=== PATIENT | male | born 1935 | race Caucasian/White ===

== ENCOUNTER 2016-12-31 22:43 | Inpatient (IN) ==
[2016-12-31 23:37] LABS: Basophils % 0.4 %; Eosinophils # 0.1 K/mcL (0.0-0.6); Eosinophils % 2.6 %; Hematocrit 36.4 % (37.5-50.1); Hemoglobin 12.2 g/dL (12.9-16.9); Immature Granulocytes % 1.1 % (0-4); Lymphocytes # 1.5 K/mcL (0.6-4.6); Mean Corpuscular HGB Conc 33.5 g/dL (31.6-35.5); Mean Corpuscular Hemoglobin 29.5 pg (28.0-33.3); Mean Corpuscular Volume 87.9 fL (83.0-100.0); Mean Platelet Volume 9.5 fL (9.4-12.4); Monocytes # 0.6 K/mcL (0.0-1.3); Monocytes % 11.2 %; Platelet Count 181 K/mcL (140-400); Red Blood Count 4.14 M/mcL (4.19-5.50); Red Cell Distribution Width 13.4 % (11.5-14.5); Segmented Neutrophils % 56.7 %
[2016-12-31 23:44] LABS: INR 1.2; Prothrombin Time 12.5 Seconds (9.4-12.1)
[2016-12-31 23:47] LABS: Activated Partial Thrombo Time 35.4 Seconds (26.0-36.0)
[2016-12-31 23:49] LABS: BUN/Creatinine Ratio 17 (6-26); Blood Urea Nitrogen 19 mg/dL (8-26); Calcium 9.7 mg/dL (8.6-10.8); Carbon Dioxide 27 mEq/L (19-29); Chloride 104 mEq/L (98-109); Glucose 145 mg/dL (70-99); Osmolality,Calculated 295 (280-300); Potassium 3.8 mEq/L (3.5-4.5); Sodium 140 mEq/L (136-145); eGFR For African Americans > 60 (> 60); eGFR For Non-African Americans > 60 (> 60)
--- NOTE | 2017-01-01 00:27 | Emergency Department Note ---
Disposition Clinical Impression: Lower gastrointestinal hemorrhage Disposition: Home, Self-Care Condition: Good Time of Disposition: 00:27 GI Bleed HPI - General Chief complaint: ED GI Bleed Stated complaint: rectal bleeding Time Seen by Provider: 12/31/16 23:07 Source: patient Mode of arrival: ambulatory Limitations: no limitations Nursing Notes Reviewed: Yes Vital Signs Reviewed: Yes - History of Present Illness HPI Narrative: 81-year-old male with past medical history of diabetes and ischemic bowel presents with abrupt onset lower GI bleed this evening. He states that he was walking around and noticed that his underwear was wet and they were soaked with blood. Since then, he had 4-5 episodes of gross hematochezia without a bowel movement. He denies any recent straining with bowel movements or bleeding hemorrhoids. He denies any abdominal pain, nausea or vomiting, fever, headache or near-syncope, chest pain or shortness of breath. He denies any antiplatelet or anticoagulant use. Last colonoscopy was normal and about 10 years ago. Pt Subjective Complaint: gross hematochezia - Related Data Home Medications Medication Instructions Recorded Confirmed Finasteride [Proscar] 5 mg PO DAILY 11/14/15 12/31/16 Metformin HCl [Fortamet] 1,000 mg PO BID 11/14/15 12/31/16 Tamsulosin HCl [Flomax] 0.4 mg PO DAILY 11/14/15 12/31/16 Previous Rx's Medication Instructions Recorded Docusate Sodium [Colace] 100 mg PO BID #60 capsule 11/17/15 Allergies Allergy/AdvReac Type Severity Reaction Status Date / Time codeine Allergy Hives Verified 12/31/16 23:56 All systems ED: reviewed and negative except as stated. Past Medical History - Past Medical History Attestation: Yes The following information was validated with the patient. Source: patient Medical history: Reports: diabetes, other Surgical history: Reports: appendectomy, other Psychiatric history: Reports: no psych history - Social History Smoking Status: Never smoker Smokeless Tobacco Status: No Alcohol use: Reports: none Drug use: Reports: none Physical Exam - Head Head exam: atraumatic, normocephalic, normal inspection - Eye Eye exam: Present: normal appearance, PERRL, EOMI - ENT ENT exam: normal exam, normal oropharynx, mucous membranes moist - Neck Neck exam: Present: normal inspection, full ROM, trachea midline - Chest Chest inspection: Present: normal inspection, symmetric chest wall rise - Respiratory Respiratory exam: Clear to auscultation bilaterally without wheezes rales or rhonchi Cardiovascular Cardiovascular exam: Present: regular rate, normal rhythm, normal heart sounds - Abdominal Exam Exam is benign. Patient has no tenderness, rigidity, or guarding. Bowel sounds are normal. Rectal exam showed small non-bleeding external hemorrhoids, no fissures. Internal exam showed an enlarged prostate and gross blood. - Extremities Exam Extremities exam: Present: normal inspection, full ROM - Back Exam Back exam: Present: normal inspection, full ROM. Absent: tenderness, CVA tenderness (R), CVA tenderness (L) - Neurological Exam Neurological exam: Present: alert, oriented X3, CN II-XII intact - Psychiatric Psychiatric exam: Present: normal affect, normal mood - Skin Skin exam: Present: warm, dry, intact, normal color - General Limitations: no limitations General appearance: alert, in no apparent distress Course - Reevaluation(s) Reevaluation #1: Hemoglobin 12. Vital stable in the emergency department on reassessment. Patient accepted to hospitalist service by Dr. Gomez for lower GI bleed. Type and screen was sent. Time: 00:36 Vital Signs Temperature 97.6 F 12/31/16 22:46 Pulse Rate 75 12/31/16 22:46 Respiratory Rate 18 12/31/16 22:46 Blood Pressure 151/91 12/31/16 22:46 O2 Sat by Pulse Oximetry 94 12/31/16 22:46 Temperature 97.6 F 12/31/16 22:46 Pulse Rate 68 01/01/17 00:00 Respiratory Rate 14 01/01/17 01:35 Blood Pressure 151/73 01/01/17 01:35 O2 Sat by Pulse Oximetry 95 01/01/17 00:00 Oxygen Delivery Oxygen Delivery Room Air GI Bleed - Lab Data Result diagrams: 12/31/16 23:25 12/31/16 23:25 Lab Results 12/31/16 12/31/16 12/31/16 Range/Units 23:25 23:25 23:25 WBC 5.4 (4.3-11.1) K/mcL RBC 4.14 L (4.19-5.50) M/mcL Hgb 12.2 L (12.9-16.9) g/dL Hct 36.4 L (37.5-50.1) % MCV 87.9 (83.0-100.0) fL MCH 29.5 (28.0-33.3) pg MCHC 33.5 (31.6-35.5) g/dL RDW 13.4 (11.5-14.5) % Plt Count 181 (140-400) K/mcL MPV 9.5 (9.4-12.4) fL Immature Gran % 1.1 (0-4) % Seg Neutrophils % 56.7 % Lymphocytes % 28.0 % Monocytes % 11.2 % Eosinophils % 2.6 % Basophils % 0.4 % Neutrophils # 3.0 (1.6-8.9) K/mcL Lymphocytes # 1.5 (0.6-4.6) K/mcL Monocytes # 0.6 (0.0-1.3) K/mcL Eosinophils # 0.1 (0.0-0.6) K/mcL Basophils # 0.0 (0.0-0.2) K/mcL PT 12.5 H (9.4-12.1) Seconds INR 1.2 APTT 35.4 (26.0-36.0) Seconds Sodium 140 (136-145) mEq/L Potassium 3.8 (3.5-4.5) mEq/L Chloride 104 (98-109) mEq/L Carbon Dioxide 27 (19-29) mEq/L BUN 19 (8-26) mg/dL Creatinine 1.10 (0.72-1.25) mg/dL Est GFR ( Amer) > 60 (> 60) Est GFR (Non-Af Amer) > 60 (> 60) BUN/Creatinine Ratio 17 (6-26) Glucose 145 H (70-99) mg/dL Calculated Osmolality 295 (280-300) Lactic Acid (0.5-2.2) mmol/L Calcium 9.7 (8.6-10.8) mg/dL Blood Type Antibody Screen 12/31/16 12/31/16 Range/Units 23:25 23:46 WBC (4.3-11.1) K/mcL RBC (4.19-5.50) M/mcL Hgb (12.9-16.9) g/dL Hct (37.5-50.1) % MCV (83.0-100.0) fL MCH (28.0-33.3) pg MCHC (31.6-35.5) g/dL RDW (11.5-14.5) % Plt Count (140-400) K/mcL MPV (9.4-12.4) fL Immature Gran % (0-4) % Seg Neutrophils % % Lymphocytes % % Monocytes % % Eosinophils % % Basophils % % Neutrophils # (1.6-8.9) K/mcL Lymphocytes # (0.6-4.6) K/mcL Monocytes # (0.0-1.3) K/mcL Eosinophils # (0.0-0.6) K/mcL Basophils # (0.0-0.2) K/mcL PT (9.4-12.1) Seconds INR APTT (26.0-36.0) Seconds Sodium (136-145) mEq/L Potassium (3.5-4.5) mEq/L Chloride (98-109) mEq/L Carbon Dioxide (19-29) mEq/L BUN (8-26) mg/dL Creatinine (0.72-1.25) mg/dL Est GFR ( Amer) (> 60) Est GFR (Non-Af Amer) (> 60) BUN/Creatinine Ratio (6-26) Glucose (70-99) mg/dL Calculated Osmolality (280-300) Lactic Acid 1.1 (0.5-2.2) mmol/L Calcium (8.6-10.8) mg/dL Blood Type O POSITIVE Antibody Screen NEGATIVE Attestation Statement - Attestation Attestation: I, Sánchez Cronin, examined this patient and my medical decision-making was reviewed with the YARD CALLER/PA/Advanced Practice Nurse/Resident Physician. I agree with the documented findings, disposition and treatment plan as described except to the extent set forth below. 81-year-old male presents with concerns of hematochezia. Patient states she has had greater than 5 episodes of bright red blood per rectum which filled the toilet full. Patient denies fever, chills, nausea, vomiting, near syncopal symptoms, palpitations, chest pain, shortness of breath. She states she had one episode of hematachezia 2 weeks ago. Had a colonoscopy about 10 years ago which was within normal limits. Vital signs are within normal limits. Rectal exam revealed bright red blood without evidence of melena. Hemoglobin is within normal limits. Patient will be admitted to the hospital for further evaluation and likely colonoscopy for care of GI bleeding.
[2017-01-01] MEDS ORDERED: Naloxone 0.4 MG/ML INJ IVP PRN (01:14)
[2017-01-01] MEDS ORDERED: Ondansetron 4 MG/2 ML VIAL IVP PRN (01:14)
[2017-01-01] MEDS ORDERED: 0.9 % Sodium Chloride 1,000 ML IVC SCH (01:15)
--- NOTE | 2017-01-01 01:26 | Internal Med History&Physical ---
Date of Encounter: 01/01/17 Time of Encounter: 01:45 Assessment and Plan (1) Lower gastrointestinal hemorrhage Current visit: Yes Status: Acute Acute lower GI bleed - bright red blood per rectum - gross hematochezia Unclear etiology - possible diverticulosis or bleeding from hemorrhoids Continue IV fluids, nothing by mouth, IV Zofran, IV famotidine Gastroenterology consult Monitor H&H, transfuse PRBC if needed CT abdomen and pelvis - pending Labs in a.m. (2) Type 2 diabetes mellitus Current visit: Yes Status: Chronic Type 2 diabetes mellitus [id number], hyperglycemia Glucose checks, sliding scale insulin Qualifiers: Diabetes mellitus complication status: without complication Diabetes mellitus extermination inspector insulin use: without extermination inspector use Qualified Code(s): E11.9 - Type 2 diabetes mellitus without complications (3) BPH (benign prostatic hyperplasia) Current visit: Yes Status: Chronic Continue home medications Qualifiers: Prostatic enlargement morphology: unspecified morphology Lower urinary tract symptom presence: symptoms present Qualified Code(s): N40.1 - Benign prostatic hyperplasia with lower urinary tract symptoms (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 Benson in November 2015 (5) DVT prophylaxis Current visit: Yes Status: Acute Continue SCDs, anticoagulants contraindicated due to GI bleed Internal Medicine - H&P: HPI Chief complaint: Blood in stool Admitted From: Emergency Dept History of present illness: Mr. Dalton is a 81 year old male with past medical history of diabetes, BPH and history of ischemic bowel status post cecopexy and small bowel resection with anastomosis. Patient presents to the ED with complaints of bright red blood in stool. Patient states he got out of his chair to go the bathroom, this afternoon, and felt that his underwear soaked. When he checked he found there was a lot of blood in his underwear. He continued to have almost 5 episodes of bright red blood per rectum. He states he did not see any stool, and it was only blood. Patient denies straining and denies having any diarrhea. He denies abdominal pain or vomiting or nausea. Patient denies chest pain or shortness of breath or dizziness or lightheadedness. He is otherwise asymptomatic. Patient states he also had one episode of bright red blood per rectum while in the ED today. On examination patient is awake and alert. Able to provide all history. He has no other acute complaints. Patient denies any anticoagulant use. Denies history of hemorrhoids or diverticulosis. Last colonoscopy was about 10 years ago. Patient states he is otherwise fairly healthy individual and remains very active and is independent. He lives at home with his . Initial workup in the ED was fairly within normal limits. CT abdomen and pelvis is pending at this time. Patient is being admitted for lower GI bleed. He will need gastroenterology consult. We will monitor his H&H and transfuse if needed. He is being admitted in a stable condition. Patient has been explained about his condition and plan of care. Understood and agreed. No unanswered questions. No family members at bedside. CODE STATUS full code. Past Med Surg Social Fam HX - Past Medical History Medical history: diabetes, other Psychiatric history: no psych history - Past Surgical History Surgical History: appendectomy, other - Social History Smoking Status: Never smoker Smokeless Tobacco Status: No Alcohol use: none Drug use: none - Family History Mother Living Status: Hx Family Cardiac Disorders: Yes (heart problems) Hx Family Endocrine Disorder: Yes (diabetes) Father Living Status: Hx Family Respiratory Disorders: Yes (asthma, copd) Brother Living Status: Hx Family Cardiac Disorders: Yes Hx Family Respiratory Disorders: Yes Internal Medicine - H&P: Meds RX: Finasteride [Proscar] 5 mg PO DAILY 11/14/15 [History] RX: Metformin HCl [Fortamet] 1,000 mg PO BID 11/14/15 [History] RX: Tamsulosin HCl [Flomax] 0.4 mg PO DAILY 11/14/15 [History] Docusate Sodium [Colace] 100 mg PO BID #60 capsule 11/17/15 [Rx] Allergies codeine Allergy (Verified 12/31/16 23:56) Hives All Systems PM: A 10-system review of systems was performed and is negative for pertinent findings except as documented above in the HPI. - Constitutional Constitutional: no fatigue, no fever(s), no weakness - EENT Eyes: no blurry vision, no loss of vision - Cardiovascular Cardiovascular ROS IM: no chest pain, no diaphoresis, no dyspnea, no dyspnea on exertion, no lightheadedness, no orthopnea, no syncope - Respiratory Respiratory: no cough, no dyspnea, no hemoptysis, no dyspnea on exertion, no wheezing, no chest congestion - Gastrointestinal Gastrointestinal: change in bowel habits, hematochezia, no abdominal pain, no bloating, no coffee ground emesis, no constipation, no cramping, no diarrhea, no dysphagia, no loose stools, no melena, no nausea, no vomiting - Genitourinary Genitourinary ROS male: no dysuria - Musculoskeletal Musculoskeletal ROS IM: no arthralgias - Neurological Neurological ROS: no abnormal gait, no abnormal speech, no dizziness, no loss of vision, no numbness, no tingling - Constitutional Vitals: Temp Pulse Resp BP Pulse Ox 97.6 F 68 16 144/74 95 12/31/16 22:46 01/01/17 00:00 01/01/17 00:00 01/01/17 00:00 01/01/17 00:00 General appearance: Present: A&O X 3, pleasant, no acute distress, answers questions appropriately - Head Head exam: Present: atraumatic - Eye Eye exam: Present: EOMI - ENT ENT exam: Present: mucous membranes moist - Neck Neck exam general surgery: Present: supple - Respiratory Respiratory exam: Present: CTAB. Absent: rales, rhonchi, wheezes, tachypnea - Cardiovascular Cardiovascular exam: Present: RRR, +S1, +S2. Absent: tachycardia - GI/Abdominal GI/Abdominal exam: Present: soft, no peritoneal signs. Absent: distended, firm , guarding, rigid, tenderness - Rectal Rectal exam: Present: bloody stool - Extremities Exam Extremities exam: Present: radial pulses palpable and symetrical. Absent: cyanotic, pedal edema, tenderness - Neurological Exam Neurological exam: Present: alert, oriented X3, no focal deficits Internal Med - H&P Results - Labs CBC & Chem 7: 12/31/16 23:25 12/31/16 23:25
[2017-01-01] MEDS ORDERED: D5% in Water 1,000 ML IVC PRN (01:28)
[2017-01-01] MEDS ORDERED: *HR* Dextrose 50 % in Water (Syg) 50 ML SYRINGE IVP PRN (01:28)
[2017-01-01] MEDS ORDERED: Dextrose Gel 15 GM PO PRN ×2 (01:28)
[2017-01-01] MEDS: Famotidine 20 MG/2 ML VIAL IVP SCH ×2 (02:59→05:55)
[2017-01-01 03:14] LABS: Bilirubin,Urine Negative (Negative); Blood,Urine Negative (Negative); Clarity,Urine Clear (Clear); Color,Urine Yellow (Yellow); Glucose,Urine (UA) Normal (Normal); Ketones,Urine Negative (Negative); Leukocyte Esterase,Urine Negative (Negative); Nitrite,Urine Negative (Negative); Protein,Urine Negative (Neg-Trace); Urobilinogen,Urine Normal (Normal)
[2017-01-01 05:31] LABS: Basophils % 0.4 %; Eosinophils # 0.1 K/mcL (0.0-0.6); Hematocrit 40.1 % (37.5-50.1); Hemoglobin 13.2 g/dL (12.9-16.9); Immature Granulocytes % 1.5 % (0-4); Lymphocytes # 1.2 K/mcL (0.6-4.6); Lymphocytes % 24.7 %; Mean Corpuscular HGB Conc 32.9 g/dL (31.6-35.5); Mean Corpuscular Hemoglobin 29.1 pg (28.0-33.3); Mean Corpuscular Volume 88.3 fL (83.0-100.0); Mean Platelet Volume 9.4 fL (9.4-12.4); Monocytes # 0.5 K/mcL (0.0-1.3); Monocytes % 11.2 %; Neutrophils # 2.8 K/mcL (1.6-8.9); Platelet Count 187 K/mcL (140-400); Red Blood Count 4.54 M/mcL (4.19-5.50); Red Cell Distribution Width 13.2 % (11.5-14.5); Segmented Neutrophils % 59.2 %
[2017-01-01 05:35] LABS: INR 1.1; Prothrombin Time 12.4 Seconds (9.4-12.1)
[2017-01-01 05:39] LABS: Hemoglobin A1C 6.7 %
[2017-01-01 05:45] LABS: BUN/Creatinine Ratio 18 (6-26); Blood Urea Nitrogen 17 mg/dL (8-26); Calcium 9.5 mg/dL (8.6-10.8); Carbon Dioxide 25 mEq/L (19-29); Chloride 106 mEq/L (98-109); Glucose 124 mg/dL (70-99); Magnesium 2.1 mg/dL (1.6-2.6); Osmolality,Calculated 291 (280-300); Potassium 3.8 mEq/L (3.5-4.5); Sodium 139 mEq/L (136-145); eGFR For African Americans > 60 (> 60); eGFR For Non-African Americans > 60 (> 60)
[2017-01-01] MEDS ORDERED: Insulin LISPRO 300 UNITS/3 ML VIAL SQ SCH (06:00)
[2017-01-01] MEDS ORDERED: Finasteride 5 MG TABLET PO SCH (09:00)
--- NOTE | 2017-01-01 14:36 | Discharge Summary ---
Date of Encounter: 01/01/17 Time of Encounter: 11:40 - Discharge Diagnosis (1) Lower gastrointestinal hemorrhage Priority: Primary Status: Acute (2) Diabetes Priority: Secondary Status: Chronic Qualifiers: Diabetes mellitus type: type 2 Diabetes mellitus complication status: without complication Diabetes mellitus intermission coordinator insulin use: without fpc use Qualified Code(s): E11.9 - Type 2 diabetes mellitus without complications (3) BPH (benign prostatic hyperplasia) Priority: Secondary Status: Chronic Qualifiers: Lower urinary tract symptom presence: presence of symptoms unspecified Qualified Code(s): N40.0 - Benign prostatic hyperplasia without lower urinary tract symptoms - Discharge Medications Home Medications: Finasteride [Proscar] 5 mg PO DAILY 11/14/15 [History] Metformin HCl [Fortamet] 1,000 mg PO BID 11/14/15 [History] Tamsulosin HCl [Flomax] 0.4 mg PO DAILY 11/14/15 [History] Docusate Sodium [Colace] 100 mg PO BID #60 capsule 11/17/15 [Rx] Allergies/Adverse Reactions: Allergies codeine Allergy (Verified 12/31/16 23:56) Hives Procedures/tests Complete & Pending: Procedures Performed prior 72 hours Category Date Time Status ECG 12 lead ECG [ECG] Routine Y 12/31/16 02:23 Completed - Notes to Outpatient Provider Please schedule outpatient Colonoscopy when stable; Date of admission: 01/01/17 01:31 Primary care physician: Kelly Hawley MD Discharging clinician: Gretchen Oliver Anticipated date of discharge: 01/01/17 - Patient Status Disposition: Home, Self-Care Condition: Good Functional capacity at discharge: independent ambulation Overall status at discharge: patient is progressing back to baseline - Discharge Instructions Instructions: Rectal Bleeding (DC) Follow Up With: Kelly Hawley MD [Primary Care Provider] - 01/11/17 10:20 am - Diet and Activity Activity: resume usual activities as tolerated Diet: diabetic diet Hospital course: Mr. Dalton is a 81 year old male with the above medical problems who was admitted with painless bright red bleeding per rectum. Patient was initially kept nothing by mouth along with IV hydration. Hemoglobin was monitored closely and noted to be stable, around 13. No further episodes of GI bleed noted today. CT abdomen/pelvis showed no acute abnormality. GI was consulted and recommend outpatient colonoscopy. Patient is currently able to tolerate oral diet and is otherwise medically stable and is anxious to be discharged. - Time Spent with Patient Total time spent providing and/or coordinating discharge services: Greater than 30 minutes (45 min) - Constitutional Vitals: Temp Pulse Resp BP Pulse Ox 97.6 F 69 16 148/72 96 01/01/17 11:47 01/01/17 11:47 01/01/17 11:47 01/01/17 11:47 01/01/17 11:47 General appearance: Present: A&O X 3, answers questions appropriately - Cardiovascular Cardiovascular exam: Present: RRR, +S1, +S2. Absent: diastolic murmur, gallop, rubs, systolic murmur - GI/Abdominal GI/Abdominal exam: Present: normal bowel sounds, soft, no peritoneal signs. Absent: distended, tenderness - VTE Documentation of Mechanical Device: Intermittent pneumatic compression device
--- NOTE | 2017-01-01 15:05 | Gastroenterology Consult Note ---
<Dennis Webb - Last Filed: 01/01/17 15:03> Date of Encounter: 01/01/17 Time of Encounter: 11:35 - Assessment and plan (1) Lower gastrointestinal hemorrhage Status: Acute Assessment and plan: CT A/P with no acute finding to account for rectal bleeding. Hgb 12.2 on admission and 13.2 today. Pt report 5 episodes of BRBPR yesterday, but none today. Can complete colonoscopy as outpatient. Pt to follow up in GI office in 2 weeks. - Time Spent With Patient Total time spent is greater than 50% in coordination of care (as documented) at patient's floor/unit and/or counseling patient: GI History of Present Illness - Data of Consult Patient: new to practice Consult date: 01/01/17 Requesting Physician: Gretchen Oliver MD - Consult Narrative Reason for consult: GI bleed History of present illness: Mr. Dalton is a 81 year old male with PMHx of DM, BPH, ischemic bowel s/p small bowel resection with anastomosis who presented to the ED with c/o BRBPR. Pt noticed blood in his underwear yesterday afternoon, and had 5 episodes of BRBPR. No further bleeding noted today. He states he did not see any stool and it was only blood. He denies fever, chills, chest pain, shortness of breath, abdominal pain, nausea, vomiting, or diarrhea. CT A/P with no acute finding to account for rectal bleeding. Procedures: Colonoscopy 07/19/2005 Dr. Kearney: Hyperplastic polyp NSAIDs: None Anticoagulation: None Past Med Surg Social Fam HX - Past Medical History Medical history: diabetes, other Psychiatric history: no psych history - Past Surgical History Surgical History: appendectomy, other - Social History Smoking Status: Never smoker Smokeless Tobacco Status: No Alcohol use: none Drug use: none - Family History Mother Living Status: Hx Family Cardiac Disorders: Yes (heart problems) Hx Family Endocrine Disorder: Yes (diabetes) Father Living Status: Hx Family Respiratory Disorders: Yes (asthma, copd) Brother Living Status: Hx Family Cardiac Disorders: Yes Hx Family Respiratory Disorders: Yes - Gastrointestinal Gastrointestinal: Present: as per HPI - Constitutional Constitutional: as per HPI - EENT Eyes: as per HPI Ears: Present: as per HPI Nose, mouth and throat: Present: as per HPI - Cardiovascular Cardiovascular ROS: Present: as per HPI - Respiratory Respiratory IM: Present: as per HPI - Genitourinary Genitourinary: Absent: change in color, Urinary frequency - Neurological ROS Neurological GI: Present: as per HPI - Hematologic/Lymphatic Hematologic/Lymphatic pediatric: Present: as per HPI - Musculoskeletal Musculoskeletal ROS GI: Present: as per HPI - Integumentary Integumentary GI: Present: as per HPI - Psychiatric ROS Psychiatric GI: Present: as per HPI - Endocrine Endocrine IM: Present: as per HPI - Constitutional Vitals: Temp Pulse Resp BP Pulse Ox 97.6 F 69 16 148/72 96 01/01/17 11:47 01/01/17 11:47 01/01/17 11:47 01/01/17 11:47 01/01/17 11:47 Results - Labs CBC & Chem 7: 01/01/17 05:15 01/01/17 05:15 Labs: Last Result Calcium 9.5 mg/dL (8.6-10.8) 01/01/17 05:15 Entire Visit Hgb 13.2 g/dL (12.9-16.9) 01/01/17 05:15 Hct 40.1 % (37.5-50.1) 01/01/17 05:15 PT 12.4 Seconds (9.4-12.1) H 01/01/17 05:15 - ABG ABG results: PT/INR, D-dimer PT 12.4 Seconds (9.4-12.1) H 01/01/17 05:15 Consult Discharge Plan - Plan Instructions: Rectal Bleeding (DC) Referrals: Kelly Hawley MD [Primary Care Provider] - 01/11/17 10:20 am <Reggie Johnson - Last Filed: 01/01/17 19:03> Date of Encounter: 01/01/17 Time of Encounter: 15:00 - Time Spent With Patient Total time spent is greater than 50% in coordination of care (as documented) at patient's floor/unit and/or counseling patient: GI History of Present Illness - Data of Consult Requesting Physician: Gretchen Oliver MD - Consult Narrative History of present illness: Mr. Dalton is a 81 year old male - Constitutional Vitals: Temp Pulse Resp BP Pulse Ox 97.4 F L 68 16 142/91 97 01/01/17 16:08 01/01/17 16:08 01/01/17 16:08 01/01/17 16:08 01/01/17 16:08 Results - Labs CBC & Chem 7: 01/01/17 05:15 01/01/17 05:15 Labs: Last Result Calcium 9.5 mg/dL (8.6-10.8) 01/01/17 05:15 Entire Visit Hgb 13.2 g/dL (12.9-16.9) 01/01/17 05:15 Hct 40.1 % (37.5-50.1) 01/01/17 05:15 PT 12.4 Seconds (9.4-12.1) H 01/01/17 05:15 - ABG ABG results: PT/INR, D-dimer PT 12.4 Seconds (9.4-12.1) H 01/01/17 05:15 - Attending Attestation I examined this patient and my medical decision-making was reviewed with the WAREHOUSE SHIPPING CLERK/PA/Advanced Practice Nurse/Resident Physician. I agree with the documented findings, disposition and treatment plan as described except to the extent set forth below.
[2017-01-01 16:09] VITALS: BP 142/91
--- NOTE | 2017-01-02 08:44 | Electrocardiograph Report ---
[address] [address] Test Date: 2017-01-01 Pat Name: Kirill Dalton Department: 115 Room: 3A55 Gender: M Language Interpreter: [id number] : 1935 Requested By: Rubén Harding Order Number: [id number] Reading MD: Misbah Vaughn MD Measurements Intervals [place] Rate: 63 P: UT: 0 QRS: 35 QRSD: 97 T: 37 QT: 403 QTc: 411 Interpretive Statements SINUS RHYTHM WITH PACS IN A BIGEMINAL PATTERN Electronically Signed On 01-02-2017 8:42:39 EDT by Misbah Vaughn MD
--- NOTE | 2017-01-02 08:44 | Electrocardiograph Report ---
[place] [id number] Test Date: 2017-01-01 Pat Name: Kirill Dalton Department: 115 Room: 3A55 Gender: M Program Evaluation Consultant: [id number] : 1935 Requested By: Brittny Oliver Order Number: [id number] Reading MD: Misbah Vaughn MD Measurements Intervals [place] Rate: 63 P: [place]: 0 QRS: 31 QRSD: 98 T: 30 QT: 406 QTc: 414 Interpretive Statements SINUS RHYTHM WITH PACS IN A BIGEMINAL PATTERN Electronically Signed On 01-02-2017 8:42:19 EDT by Misbah Vaughn MD
== END 2017-01-01 16:20 | disposition home or self-care (01) | DRG 379 ==
LOC: 3ANU 22:43 → EMEROO 22:43 → SUATTDRO 01-01 01:31 → 3ANU 01-01 01:39
PROVIDERS: ADMIT Family Medicine; ATTEND Internal Medicine